=== PATIENT | male | born 1980 | race Caucasian/White ===

== ENCOUNTER 2017-06-27 12:34 | Emergency (ER) | payer OTHER ==
[~2017-06-27] VITALS: Ht 193 cm; Wt 70.0 kg
[2017-06-27 13:21] LABS: BASO # 0.1 10^3/uL (0.0-0.2); BASO % 0.5 % (0.0-1.0); EOS # 0.4 10^3/uL (0.0-0.50); EOS % 4.5 % (0.0-3.0); IMMATURE GRANULOCYTE % 0.6 % (0-0); LYMPH # 2.9 10^3/uL (1.5-4.5); LYMPH % 29.6 % (24.0-44.0); MEAN CORPUSCULAR HEMOGLOBIN 30.2 pg (27.0-33.0); MEAN CORPUSCULAR HGB CONC 35.2 g/dl (32.0-36.5); MEAN CORPUSCULAR VOLUME 85.8 fl (80.0-96.0); MONO # 0.7 10^3/uL (0.0-0.8); MONO % 7.2 % (0.0-5.0); NEUTROPHILS # 5.5 10^3/uL (1.8-7.7); NEUTROPHILS % 57.6 % (36.0-66.0); PLATELET COUNT, AUTOMATED 344 10^3/uL (150-450); RED CELL DISTRIBUTION WIDTH 12.2 % (11.5-14.5); WHITE BLOOD COUNT 9.6 10^3/uL (4.0-10.0)
[2017-06-27 13:26] LABS: ADD MANUAL DIFFER NO; DIFF SLIDE NUMBER 243
--- NOTE | 2017-06-27 13:43 | REP ---
Portable chest, 01:23 p.m., single AP view, patient sitting: The lung menjivar are clear. Cardiac size is upper normal for portable positioning. The lauren, mediastinum, and bony thorax unremarkable. Impression: Essentially negative portable chest. Signed by Jeanmarie Macdonald MD 06/27/2017 01:34 P
[2017-06-27 13:49] LABS: ALBUMIN 4.2 GM/DL (3.2-5.2); ALKALINE PHOSPHATASE 73 U/L (45-117); ALT/SGPT 44 U/L (12-78); ANION GAP 6 MEQ/L (8-16); AST/SGOT 15 U/L (15-37); BILIRUBIN,DIRECT < 0.1 MG/DL (0.0-0.2); BILIRUBIN,TOTAL 0.3 MG/DL (0.2-1.0); BLOOD UREA NITROGEN 13 MG/DL (7-18); CALCIUM LEVEL 9.3 MG/DL (8.5-10.1); CARBON DIOXIDE LEVEL 29 MEQ/L (21-32); CHLORIDE LEVEL 103 MEQ/L (98-107); CREATININE FOR GFR 1.09 MG/DL (0.70-1.30); GLOMERULAR FILTRATION RATE > 60.0 (>60); GLUCOSE, FASTING 101 MG/DL (70-105); POTASSIUM SERUM 4.3 MEQ/L (3.5-5.1); SODIUM LEVEL 138 MEQ/L (136-145); TOTAL PROTEIN 7.7 GM/DL (6.4-8.2)
[2017-06-27] MEDS ORDERED: ASPIRIN 81 MG CHEW TABLET PO ONE (14:00)
[2017-06-27] MEDS ORDERED: NITROGLYCERIN 0.4 MG SUBL TABLET SL PRN (14:00)
[2017-06-27] MEDS ORDERED: ISOVUE-370 76% 100ML VIAL (Q9967) As Ordered ONE (14:45)
--- NOTE | 2017-06-27 14:53 | REP ---
Bilateral lower extremity Duplex Doppler venous ultrasound: Real time compression and duplex Doppler interrogation of the bilateral lower extremity deep venous system is performed. Bilaterally, the common femoral, superficial femoral and popliteal veins are fully compressible with transducer pressure and demonstrate normal spontaneous and phasic flow, without evidence of deep venous thrombosis. Impression: No evidence of deep venous thrombosis of the bilateral lower extremity femoral popliteal venous system. Signed by Jeanmarie Leon MD 06/27/2017 02:44 P
--- NOTE | 2017-06-27 15:32 | REP ---
CT of the chest with IV contrast, CT pulmonary angiography: There are no emboli in the pulmonary trunk or central pulmonary arteries. There are no emboli in the lobe or segment branches. The thoracic aorta is unremarkable. There are no infiltrates, masses, nodules or effusions. There is no mediastinal or hilar adenopathy or mass. No axillary adenopathy. Cardiac size is upper normal. There is no pericardial effusion. The visualized upper abdominal contents are unremarkable. Impression: Negative CT study of the chest. Signed by Jeanmarie Macdonald MD 06/27/2017 03:23 P
[2017-06-27 20:30] VITALS: BP 134/70
--- NOTE | 2017-06-28 07:52 | ECGEPIP ---
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
--- NOTE | 2017-06-29 05:57 | ECGEPIP ---
Stationary ECG Study [facility] - ED Test Date: 2017-06-27 Pat Name: MARIUM CHE Department: Room: - Gender: M Fisher Eel Spear: oswaldo : 1980 Requested By: ORLANDO Mascorro Order Number: [id number] Reading MD: Khari Alas Measurements Intervals [place] Rate: 65 P: 48 MO: 176 QRS: -10 QRSD: 101 T: 9 QT: 380 QTc: 397 Interpretive Statements SINUS RHYTHM INC. RBBB MODERATE VOLTAGE CRITERIA FOR LVH, CONSIDER NORMAL VARIANT SIMILAR TO PRIOR ON SAME DATE Electronically Signed On 06-29-2017 5:57:27 EDT by Khari Alas
== END 2017-06-27 20:32 | disposition home or self-care (01) ==
LOC: M ED 12:34
DX: R07.9 Chest pain, unspecified (principal); Z87.891 Personal history of nicotine dependence; Z88.5 Allergy status to narcotic agent; Z88.8 Allergy status to other drugs, medicaments and biological substances
CPT/HCPCS: 71010; 71275; 80048; 80076; 82550; 82553; 83690; 84443; 85025; 93005; 93041; 93970; 94760; 99285; Q9967

== ENCOUNTER → 2017-08-11 | Outpatient (REF) | payer OTHER | LOC: M LAB REF 22:15 | PROVIDERS: ATTEND Physician Assistant | DX: J02.9 Acute pharyngitis, unspecified (principal) ==

== ENCOUNTER → 2017-09-25 | Outpatient (CLI) | payer OTHER ==
[2017-09-29 00:06] LABS: METANEPHRINE PLASMA 45 pg/mL (0-62); NORMETANEPHRINE PLASMA 54 pg/mL (0-145)
[2017-10-03 10:11] LABS: DOPAMINE 203 ug/24 hr (0-510); DOPAMINE TOTAL URINE 140 ug/L (Undefined); EPINEPHRINE 9 ug/24 hr (0-20); EPINEPHRINE TOTAL URINE 6 ug/L (Undefined); METANEPHRINE TOTAL URINE 111 ug/L (Undefined); METANEPHRINE URINE 161 ug/24 hr (45-290); NOREPINEPHRINE 20 ug/24 hr (0-135); NOREPINEPHRINE TOTAL URINE 14 ug/L (Undefined); NORMETANEPHRINE TOTAL URINE 141 ug/L (Undefined); NORMETANEPHRINE URINE 204 ug/24 hr (82-500)
== END ==
LOC: M LAB 11:24
DX: R23.2 Flushing (principal)
CPT/HCPCS: 82384

== ENCOUNTER → 2018-10-08 | Outpatient (CLI) | payer OTHER ==
--- NOTE | 2018-10-08 17:53 | REP ---
LEFT KNEE, FIVE VIEWS: HISTORY: Pain. There is no acute fracture or dislocation. The joint spaces are normal in appearance. IMPRESSION:There is no acute fracture or dislocation. Electronically Signed by Fransisco Sutherland MD 10/09/2018 08:14 A
== END ==
LOC: M WUC 15:40
PROVIDERS: ATTEND Physician Assistant
DX: M25.562 Pain in left knee (principal)

== ENCOUNTER 2019-01-08 09:27 | Emergency (ER) | payer OTHER ==
[~2019-01-08] VITALS: Ht 190.5 cm; Wt 113.6 kg
[2019-01-08] MEDS ORDERED: GNP250TA9 PO (09:55)
[2019-01-08] MEDS ORDERED: ZINC1TAB2 PO (09:55)
[2019-01-08] MEDS ORDERED: FISH306C PO (09:55)
--- NOTE | 2019-01-08 10:25 | REP ---
Chest two views HISTORY: Chest pain Comparison: None The lungs are clear. The heart is normal in size. The pulmonary vasculature is normal in appearance. The bony structure is intact. IMPRESSION: No acute disease. Electronically Signed by Fransisco Sutherland MD 01/08/2019 10:16 A
[2019-01-08 10:27] LABS: BASO # 0.1 10^3/uL (0.0-0.2); BASO % 0.6 % (0.0-1.0); EOS # 0.3 10^3/uL (0.0-0.50); HEMATOCRIT 44.2 % (42.0-52.0); HEMOGLOBIN 15.4 g/dl (13.5-17.5); LYMPH # 2.1 10^3/uL (1.5-4.5); LYMPH % 27.1 % (24.0-44.0); MEAN CORPUSCULAR HEMOGLOBIN 30.2 pg (27.0-33.0); MEAN CORPUSCULAR HGB CONC 34.8 g/dl (32.0-36.5); MEAN CORPUSCULAR VOLUME 86.7 fl (80.0-96.0); MONO # 0.5 10^3/uL (0.0-0.8); MONO % 6.9 % (0.0-5.0); NEUTROPHILS # 4.8 10^3/uL (1.8-7.7); NEUTROPHILS % 60.9 % (36.0-66.0); PLATELET COUNT, AUTOMATED 315 10^3/uL (150-450); WHITE BLOOD COUNT 7.8 10^3/uL (4.0-10.0)
[2019-01-08 10:37] LABS: INR 0.95; PROTHROMBIN TIME 12.8 SECONDS (12.1-14.4)
[2019-01-08 10:38] LABS: PARTIAL THROMBOPLASTIN TIME 30.5 SECONDS (25.4-37.6)
[2019-01-08 10:55] LABS: ALBUMIN 4.1 GM/DL (3.2-5.2); ALT/SGPT 35 U/L (12-78); BILIRUBIN,DIRECT 0.1 MG/DL (0.0-0.2); BILIRUBIN,TOTAL 0.5 MG/DL (0.2-1.0); BLOOD UREA NITROGEN 13 MG/DL (7-18); CARBON DIOXIDE LEVEL 26 MEQ/L (21-32); CHLORIDE LEVEL 108 MEQ/L (98-107); CPK CREATINE PHOSPHOKINASE 210 U/L (39-308); CREATININE FOR GFR 1.13 MG/DL (0.70-1.30); GLOMERULAR FILTRATION RATE > 60.0 (>60); GLUCOSE, FASTING 100 MG/DL (70-100); LIPASE 117 U/L (73-393); MB/CK RELATIVE INDEX 1.14 (< OR =4); POTASSIUM SERUM 4.3 MEQ/L (3.5-5.1); SODIUM LEVEL 139 MEQ/L (136-145); TOTAL PROTEIN 7.3 GM/DL (6.4-8.2); TROPONIN I 0.04 NG/ML (< 0.10)
[2019-01-08 13:00] VITALS: BP 182/85
[2019-01-08] MEDS ORDERED: ISOVUE-370 76% 100ML VIAL (Q9967) As Ordered ONE (13:06)
--- NOTE | 2019-01-08 13:36 | REP ---
CT study of the chest with IV contrast, CT pulmonary angiography: Comparison is 06/27/2017. There are no emboli in the pulmonary trunk or central pulmonary arteries. There are no emboli in the pulmonary lobe or segment branches. There are no infiltrates, effusions. There is a 9 mm lung nodule in the left lower lobe on image 144, not present previously. There is a 18 mm ground-glass density posteriorly in the right upper lobe on image 47, near the major fissure, not present previously. There is no hilar, mediastinal or axillary lymph node enlargement. The thoracic aorta is unremarkable. Cardiac size is normal. There is no pericardial effusion. The visualized upper abdominal contents are unremarkable. There is no adrenal mass. Impression: There are no pulmonary emboli. There are no acute infiltrates or effusions. There is a new 9 mm lung nodule in the left lower lobe. This is a category 4A the lung lesion with the probability malignancy five - 15%. 3-month follow-up chest CT is recommended. A PET scan might also be considered. There is a new 18 mm ground-glass density posteriorly in the right upper lobe. This is a category II lung lesion can be followed up during the follow-up of the 9 mm left lung nodule. Electronically Signed by Jeanmarie Macdonald MD 01/08/2019 01:28 P
--- NOTE | 2019-01-08 14:20 | ED PDOC ---
Post-Departure Follow-Up dr hutton faxed formal report of cta chest for fu Yuniel Mendez MD Jan 08, 2019 14:20
--- NOTE | 2019-01-09 21:28 | ECGEPIP ---
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
== END 2019-01-08 13:57 | disposition home or self-care (01) ==
LOC: M ED 09:27
DX: R07.89 Other chest pain (principal); R91.8 Other nonspecific abnormal finding of lung field; Z87.891 Personal history of nicotine dependence; Z79.899 Other long term (current) drug therapy; Z88.6 Allergy status to analgesic agent; Z88.5 Allergy status to narcotic agent
CPT/HCPCS: 71046; 71275; 80048; 80076; 82550; 82553; 83690; 84439; 84443; 84484; 85025; 85610; 85730; 93005; 93041; 94760; 99285; Q9967

== ENCOUNTER → 2019-09-30 | Outpatient (CLI) | payer OTHER ==
[~2019-09-30] MED LIST: FISH306C PO; GNP250TA9 PO; ISOVUE-370 76% 100ML VIAL (Q9967) As Ordered ONE; ZINC1TAB2 PO
--- NOTE | 2019-09-30 20:44 | REP ---
Clinical: Follow up abnormal lung findings. Comparison: 01/08/2019. Technique: Axial contrast enhanced images from the thoracic inlet to the upper abdomen with coronal and sagittal re-formations using 100 ml Isovue 370 intravenous contrast material. Comparison: 01/08/2019, 06/27/2017. Findings: 9 mm noncalcified nodule in the periphery of the left lower lobe (image 78) remains stable, but small 2 mm adjacent satellite nodules cannot be excluded which represent a change from prior examination. Remainder of lung menjivar are relatively clear/stable. Small amount of chronic change along the medial right middle lobe again noted. No further consolidation, nodule or mass lesion. No pleural effusion. No pneumothorax. No significant adenopathy is appreciated. Mediastinum demonstrates normal thoracic aorta, pulmonary vasculature and heart/pericardium. Surrounding musculoskeletal structures are intact. Limited upper abdomen demonstrates normal bilateral adrenal glands. Impression: 9 mm nodule in the left lower lobe remains stable, but current examination demonstrates few small 2 mm adjacent satellite nodules which were not identified on prior examination. Correlation and follow up is recommended. If necessary consider PET-CT for further investigation. Electronically Signed by Robles Schneider MD 09/30/2019 08:35 P
== END ==
LOC: M RAD 17:56
PROVIDERS: ATTEND Internal Medicine Pulmonary Disease
DX: R91.8 Other nonspecific abnormal finding of lung field (principal)
CPT/HCPCS: 71260; Q9967

== ENCOUNTER → 2020-03-30 | Outpatient (CLI) | payer OTHER ==
[~2020-03-30] MED LIST changes: -ISOVUE-370 76% 100ML VIAL (Q9967) As Ordered ONE; +ISOVUE-370 76% 100ML VIAL As Ordered ONE
--- NOTE | 2020-03-31 07:28 | REP ---
REASON FOR EXAM: Followup. All priors were reviewed, the latest 09/30/2019. CONTRAST: 100 mL Isovue-370. The mediastinum and pulmonary lauren are stable. Once again, there is a small amount of residual thymic tissue in the anterior mediastinum, status quo. No mass or adenopathy has developed. There are no pleural or pericardial effusions. There is no change in the imaged upper abdomen or imaged osseous structures. Evaluation of the lung menjivar shows no change in the 9 mm sized left lower lobe nodule. It has been stable since 01/08/2019. There are other stable 2 and 3 mm sized nodules. No new abnormal nodules, masses, or opacities have developed. IMPRESSION: Stable CT examination of the chest with findings as described above. Although the 9 mm sized nodule in the left lower lobe has remained stable since 01/08/2019. The smaller 2 and 3 mm sized left lower lobe nodules have only remained stable since the latest prior of 09/30/2019. Those small nodules can now be categorized as Lung-RADS category [address] screening is recommended. Electronically Signed by Kashmir Barrow DO 03/31/2020 09:32 A
== END ==
LOC: M RAD 13:36
PROVIDERS: ATTEND Internal Medicine Pulmonary Disease
DX: R91.8 Other nonspecific abnormal finding of lung field (principal)
CPT/HCPCS: 71260; Q9967

== ENCOUNTER → 2021-06-22 | Outpatient (CLI) | payer BC ==
[~2021-06-22] MED LIST changes: -ISOVUE-370 76% 100ML VIAL As Ordered ONE
--- NOTE | 2021-06-22 09:12 | REP ---
INDICATION: ABNORMAL FINDING OF LUNG FIELD COMPARISON: 03/30/2020, 09/30/2019, 01/08/2019 TECHNIQUE: Axial noncontrast images from the thoracic inlet to the upper abdomen with coronal and sagittal reformations. This CT examination was performed using the following dose reduction techniques: Automated exposure control, adjustment of mA and/or kv according to the patient's size, and use of iterative reconstruction technique. FINDINGS: A small cluster of noncalcified nodules in the periphery of the left lower lobe are again identified and essentially unchanged as compared with 09/30/2019. However, while the 9 mm nodule remains stable through 2019, the smaller adjacent satellite nodules measuring up to approximately 4 mm are new as compared to 12/29/2018 and essentially similar to 09/30/2019. remainder of the bilateral lung menjivar are relatively well aerated and clear/symmetric. No further acute nodule or mass. No consolidation, effusion, or pneumothorax. No significant adenopathy noted. Further evaluation of the mediastinum demonstrates normal thoracic aorta, pulmonary vasculature, and heart/pericardium by noncontrast evaluation. Surrounding musculoskeletal structures are intact. IMPRESSION: 1. Cluster of nodules in the periphery of the left lower lobe as described above likely reflect a mild chronic inflammatory process. Findings are essentially unchanged when compared with 09/30/2019. Consider follow-up examination at 6-12 months to confirm stability over greater than 24 month period. <Electronically signed by Robles Schneider > 06/22/21 [id number]
== END ==
LOC: M PLAIMG 08:17
PROVIDERS: ATTEND Internal Medicine Pulmonary Disease
DX: R91.8 Other nonspecific abnormal finding of lung field (principal)

== ENCOUNTER 2021-08-11 08:52 | Emergency (ER) | payer BC ==
[~2021-08-11] VITALS: Ht 193 cm; Wt 115.9 kg
--- NOTE | 2021-08-11 09:27 | REP ---
INDICATION: CHEST PAIN COMPARISON: 01/08/2019 TECHNIQUE: Portable AP view of the chest FINDINGS: The mediastinum and cardiac silhouette are stable and within normal limits for portable technique. The lung menjivar are clear without acute consolidation, effusion, or pneumothorax. Skeletal structures are intact. IMPRESSION: No acute cardiopulmonary process appreciated. <Electronically signed by Robles Schneider > 08/11/21 [id number]
[2021-08-11] MEDS ORDERED: ECOT81TA5 PO (09:30)
[2021-08-11 09:31] LABS: BASO # 0.1 10^3/uL (0.0-0.2); BASO % 0.5 % (0.0-1.0); EOS # 0.2 10^3/uL (0.0-0.5); EOS % 2.3 % (0.0-3.0); HEMATOCRIT 48.5 % (42.0-52.0); HEMOGLOBIN 16.4 g/dl (13.5-17.5); LYMPH % 19.8 % (24.0-44.0); MEAN CORPUSCULAR HEMOGLOBIN 30.5 pg (27.0-33.0); MEAN CORPUSCULAR HGB CONC 33.8 g/dl (32.0-36.5); MEAN CORPUSCULAR VOLUME 90.3 fl (80.0-96.0); MONO # 0.7 10^3/uL (0.0-0.8); MONO % 6.8 % (2.0-8.0); NEUTROPHILS % 70.2 % (36.0-66.0); PLATELET COUNT, AUTOMATED 337 10^3/uL (150-450); RED BLOOD COUNT 5.37 10^6/uL (4.30-6.10)
[2021-08-11] MEDS ORDERED: METOPROLOL TART 25 MG TABLET PO ONE (09:45)
--- OUTSIDE RECORDS SUMMARY | 2021-08-11 10:07 | CCD | Continuity of Care Document ---
Author Author Ashwin CURTIS.OElver Organization Unknown Address [address] [place] [address] Phone [phone] Care Team Providers Care Wiring Technician Name Role Phone No PCP AUTM Unavailable Problems Active Problems Provider Date Abnormal findings on diagnostic imaging of lung Vamsi porter D.O Onset: 07/07/2021 Social History Type Date Description Comments Sex Unknown Tobacco Use Reviewed: 04/01/20 Patient is a current smoker, smokes every day Occasionally Smoking Status Reviewed: 07/07/21 Patient is a current smoker, smokes every day Occasionally Allergies and adverse reactions Active Allergies Criticality Reaction | Severity Comments Date Caffeine Unable to assess criticality Palpitations 04/01/2020 Inactive Allergies NKDA Unable to assess criticality 03/24/2020 Medications Active Medications SIG Qnty Indications Ordering Provide r Date Acyclovir as needed Unknown Immunizations Description No Information Available Vital Signs Date Vital Result Comment 07/07/2021 10:11am BP Systolic 142 mmHg BP Diastolic 98 mmHg Heart Rate 83 /min O2 % BldC Oximetry 98 % Height 75.5 inches 6'3.50" Weight 263.00 lb BMI (Body Mass Index) 32.4 kg/m2 [place] Body Weight 196 lb Weight 119.297 kg BSA (Body Surface Area) 2.48 m2 04/01/2020 8:55am BP Systolic 122 mmHg BP Diastolic 82 mmHg Heart Rate 66 /min O2 % BldC Oximetry 98 % Body Temperature 98.8 F Height 75.5 inches 6'3.50" Weight 265.00 lb BMI (Body Mass Index) 32.7 kg/m2 [place] Body Weight 196 lb Weight 120.204 kg BSA (Body Surface Area) 2.49 m2 Results Description No Information Available Procedures Description No Information Available Medical Devices Description No Information Available Encounters Description No Information Available Assessments Date Code Description Provider 07/07/2021 R91.8 Other nonspecific abnormal findi ng of lung field Vamsi Curtis D.O Plan of Treatment 07/07/2021 - Vamsi Curtis D.O* R91.8 Other nonspecific abnormal finding of lung field * * Follow up:* no regular follow up needed, call if questions Functional Status Description No Information Available Mental Status Description No Information Available Referrals Description No Information Available
--- OUTSIDE RECORDS SUMMARY | 2021-08-11 10:07 | CCD | Continuity of Care Document ---
Author Author Ashwin CURTIS.OElver Organization Unknown Address [address] [place] [address] Phone [phone] Care Team Providers Care Glassware Engraver Name Role Phone No PCP AUTM Unavailable [...] lb BMI (Body Mass Index) 32.4 kg/m2 [place] Body Weight 196 lb Weight 119.297 kg BSA (Body Surface Area) 2.48 m2 04/01/2020 8:55am BP Systolic 122 mmHg BP Diastolic 82 mmHg Heart Rate 66 /min O2 % BldC Oximetry 98 % Body Temperature 98.8 F Height 75.5 inches 6'3.50" Weight 265.00 lb BMI (Body Mass Index) 32.7 kg/m2 [place] Body Weight 196 lb Weight 120.204 kg [...]
--- OUTSIDE RECORDS SUMMARY | 2021-08-11 10:07 | CCD | Continuity of Care Document ---
Author Author Ashwin CURTIS.O. Organization Unknown Address [address] [place] [address] Phone [phone] Care Team Providers Care Principal Network Architect Name Role Phone No PCP AUTM Unavailable [...] lb BMI (Body Mass Index) 32.4 kg/m2 [place] Body Weight 196 lb Weight 119.297 kg BSA (Body Surface Area) 2.48 m2 04/01/2020 8:55am BP Systolic 122 mmHg BP Diastolic 82 mmHg Heart Rate 66 /min O2 % BldC Oximetry 98 % Body Temperature 98.8 F Height 75.5 inches 6'3.50" Weight 265.00 lb BMI (Body Mass Index) 32.7 kg/m2 [place] Body Weight 196 lb Weight 120.204 kg BSA (Body Surface Area) 2.49 m2 Results Description No Information Available Procedures Date Code Description Status 07/07/2021 259[address] Office/Outpatient Established Lo w [facility] 20-29 Min Completed Medical Devices Description No Information Available Encounters Type Date Location Provider Dx Diagnosis Office Visit 07/07/2021 10:30a [facility] Davy Curtis D.O R91.8 Other nonspecific abnormal f inding of lung field Assessments Date Code Description Provider 07/07/2021 R91.8 Other nonspecific abnormal findi ng of lung field Vamsi Curtis D.O Plan of Treatment 07/07/2021 - Vamsi Curtis D.O* R91.8 Other nonspecific abnormal finding of lung field * * Comments:* ~ Having reviewed the history, physical, and diagnostic findings with the patient, I have encouraged his effort towards smoking cessation, and recommended that he try a topical nicotine patch. ~ Given the stability on imaging studies, I have recommended no further imaging in the absence of new symptoms at this point, and follow-up will be on an as needed basis. * Follow up:* No regular follow-up needed, call if questions. Functional Status Description No Information Available Mental Status Description No Information Available Referrals Description No Information Available
--- OUTSIDE RECORDS SUMMARY | 2021-08-11 10:07 | CCD ---
Continuity of Care Document (CCD) Created on: 07/07/2021 Ashwin Hooper External Reference #: [id number] : [id number] Sex: Male Author Author Ashwin CURTIS.OElver Organization Unknown Address [address] [place] [address] Phone [phone] Care Team Providers Care Loom Fixer Supervisor Name Role Phone No PCP AUTM Unavailable [...] lb BMI (Body Mass Index) 32.4 kg/m2 [place] Body Weight 196 lb Weight 119.297 kg BSA (Body Surface Area) 2.48 m2 04/01/2020 8:55am BP Systolic 122 mmHg BP Diastolic 82 mmHg Heart Rate 66 /min O2 % BldC Oximetry 98 % Body Temperature 98.8 F Height 75.5 inches 6'3.50" Weight 265.00 lb BMI (Body Mass Index) 32.7 kg/m2 [place] Body Weight 196 lb Weight 120.204 kg [...]
--- OUTSIDE RECORDS SUMMARY | 2021-08-11 10:07 | CCD ---
Continuity of Care Document (CCD) Created on: 07/07/2021 Ashwin Hooper External Reference #: [id number] : 1980 Sex: Male Author Author Ashwin CURTIS.OElver Organization Unknown Address [address] [place] [address] Phone [phone] Care Team Providers Care Crimping Press Operator Name Role Phone No PCP AUTM Unavailable [...] lb BMI (Body Mass Index) 32.4 kg/m2 [place] Body Weight 196 lb Weight 119.297 kg BSA (Body Surface Area) 2.48 m2 04/01/2020 8:55am BP Systolic 122 mmHg BP Diastolic 82 mmHg Heart Rate 66 /min O2 % BldC Oximetry 98 % Body Temperature 98.8 F Height 75.5 inches 6'3.50" Weight 265.00 lb BMI (Body Mass Index) 32.7 kg/m2 [place] Body Weight 196 lb Weight 120.204 kg [...]
--- OUTSIDE RECORDS SUMMARY | 2021-08-11 10:07 | CCD | Continuity of Care Document ---
Author Author Ashwin CURTIS.OElver Organization Unknown Address [address] [place] [address] Phone [phone] Care Team Providers Care Barrel Tester And Drainer Name Role Phone No PCP AUTM Unavailable [...] lb BMI (Body Mass Index) 32.4 kg/m2 [place] Body Weight 196 lb Weight 119.297 kg BSA (Body Surface Area) 2.48 m2 04/01/2020 8:55am BP Systolic 122 mmHg BP Diastolic 82 mmHg Heart Rate 66 /min O2 % BldC Oximetry 98 % Body Temperature 98.8 F Height 75.5 inches 6'3.50" Weight 265.00 lb BMI (Body Mass Index) 32.7 kg/m2 [place] Body Weight 196 lb Weight 120.204 kg [...]
[2021-08-11 10:16] LABS: ALT/SGPT 39 U/L (12-78); BILIRUBIN,DIRECT < 0.1 MG/DL (0.0-0.2); BILIRUBIN,TOTAL 0.3 MG/DL (0.2-1.0); BLOOD UREA NITROGEN 18 MG/DL (7-18); CALCIUM LEVEL 9.7 MG/DL (8.5-10.1); CARBON DIOXIDE LEVEL 24 MEQ/L (21-32); CHLORIDE LEVEL 109 MEQ/L (98-107); CREATININE FOR GFR 1.03 MG/DL (0.70-1.30); FREE T4 1.06 NG/DL (0.76-1.46); GLOMERULAR FILTRATION RATE > 60.0 (>60); GLUCOSE, FASTING 106 MG/DL (70-100); LIPASE 128 U/L (73-393); POTASSIUM SERUM 4.3 MEQ/L (3.5-5.1); SODIUM LEVEL 141 MEQ/L (136-145); TOTAL PROTEIN 7.4 GM/DL (6.4-8.2)
--- OUTSIDE RECORDS SUMMARY | 2021-08-11 10:19 | CCD ---
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 Name Role Phone Rechlin, Shashi Agustin DO Unavailable Unavailable Rechlin, Shashi Agustin DO Unavailable Unavailable Rechlin, Shashi Agustin DO Unavailable Unavailable Rechlin, Shahsi Agustin DO Unavailable Unavailable Rechlin, Shashi Agustin DO Unavailable Unavailable Rechlin, Shashi Agustin DO Unavailable Unavailable Rechlin, Shashi Agustin DO Unavailable Unavailable Rechlin, Shashi Agustin DO Unavailable Unavailable Rechlin, Shashi Agustin DO Unavailable Unavailable Rechlin, Shashi Agustin DO Unavailable Unavailable Rechlin, Sahshi Agustin DO Unavailable Unavailable Rechlin, Shashi Agustin DO Unavailable Unavailable Rechlin, Shashi Agustin DO Unavailable Unavailable Rechlin, Shashi Agustin DO Unavailable Unavailable Rechlin, Shashi Agustin DO Unavailable Unavailable Rechlin, Shashi Agustin DO Unavailable Unavailable Rechlin, Shashi Agustin DO Unavailable Unavailable Rechlin, Shashi Agustin DO Unavailable Unavailable Rechlin, Shashi Agustin DO Unavailable Unavailable Rechlin, Shashi Agustin DO Unavailable Unavailable Rechlin, Shashi Agustin DO Unavailable Unavailable Rechlin, Shashi Agustin DO Unavailable Unavailable Rechlin, Shashi Agustin DO Unavailable Unavailable Rechlin, Shashi Agustin DO Unavailable Unavailable Rechlin, Shashi Agustin DO Unavailable Unavailable Rechlin, Shashi Agustin DO Unavailable Unavailable Rechlin, Shashi Agustin DO Unavailable Unavailable Rechlin, Shashi Agustin DO Unavailable Unavailable Rechlin, Shashi Agustin DO Unavailable Unavailable Rechlin, Shashi Agustin DO Unavailable Unavailable Rechlin, Shashi Agustin DO Unavailable Unavailable Rechlin, Shashi Agustin DO Unavailable Unavailable Rechlin, P Vamsi DO Unavailable Unavailable Rechlin, P Vamsi DO Unavailable Unavailable Rechlin, P Vamsi DO Unavailable Unavailable Rechlin, P Vamsi DO Unavailable Unavailable Rechlin, P Vamsi DO Unavailable Unavailable Rechlin, P Vamsi DO Unavailable Unavailable Rechlin, P Vamsi DO Unavailable Unavailable Rechlin, P Vamsi DO Unavailable Unavailable Rechlin, P Vamsi DO Unavailable Unavailable Rechlin, P Vamsi DO Unavailable Unavailable Rechlin, P Vamsi DO Unavailable Unavailable Rechlin, P Vamsi DO Unavailable Unavailable Rechlin, P Vamsi DO Unavailable Unavailable Rechlin, P Vamsi DO Unavailable Unavailable Rechlin, P Vamsi DO Unavailable Unavailable Rechlin, P Vamsi DO Unavailable Unavailable Rechlin, P Vamsi DO Unavailable Unavailable Rechlin, P Vamsi DO Unavailable Unavailable Rechlin, P Vamsi DO Unavailable Unavailable Re-disclosure Warning The records that you are about to access may contain information from federally-assisted alcohol or drug abuse programs. If such information is present, then the following federally mandated warning applies: This information has been disclosed to you from records protected by federal confidentiality rules (42 CFR part 2). The federal rules prohibit you from making any further disclosure of this information unless further disclosure is expressly permitted by the written consent of the person to whom it pertains or as otherwise permitted by 42 CFR part 2. A general authorization for the release of medical or other information is NOT sufficient for this purpose. The Federal rules restrict any use of the information to criminally investigate or prosecute any alcohol or drug abuse patient.The records that you are about to access may contain highly sensitive health information, the redisclosure of which is protected by Article 27-F of the [facility] Public Health law. If you continue you may have access to information: Regarding HIV / AIDS; Provided by facilities licensed or operated by the [facility] Office of Mental Health; or Provided by the [facility] Office for People With Developmental Disabilities. If such information is present, then the following [facility] mandated warning applies: This information has been disclosed to you from confidential records which are protected by state law. State law prohibits you from making any further disclosure of this information without the specific written consent of the person to whom it pertains, or as otherwise permitted by law. Any unauthorized further disclosure in violation of state law may result in a fine or mcc sentence or both. A general authorization for the release of medical or other information is NOT sufficient authorization for further disc losure. Family History Family Member Name Family Member Gender Family Member Status Date o f Status Description Data Source(s) Unknown Male Problem [facility] ([facility]) Encounters Encounter Providers Location Date Indications Data Source(s ) Outpatient Attender: Vamsi Wheatley/Korey/John/Eliecer ballesteros 07/07/2021 10:30:00 AM EDT [facility] ([facility], ) Immunizations Vaccine Date Status Description Data Source(s) COVID-19 VACCINE Pfizer 05/29/2021 12:00:00 AM EDT completed [facility] Vaccine Series Complete: NOThis Data was Submitted to [facility] Via [employer]. Medications No Information Insurance Providers Payer name Policy type / Coverage type Policy ID Covered green party ID Covered green party's relationship to [place] Policy [place] Plan Information [employer] [place]/307 [id number] [employer] [place]/307 [id number] SP [id number] [facility] [id number] SP [id number] [facility] O [id number] S [id number] [facility] [id number] SP [id number] [facility] Commercial [id number] Family Dependent [id number] [facility] Commercial [id number] Self [id number] [facility] [id number] SP [id number] Problems, Conditions, and Diagnoses Code Display Name Description Problem Type Effective Dates Data Source(s) R91.8 Abnormal findings on diagnostic imaging of lung Abnormal findings on diagnostic imaging of lung Problem 07/07/2021 12:00:00 AM EDT [facility] ([facility] [place], ) Surgeries/Procedures Procedure Description Date Indications Data Source(s) OFFICE OUTPATIENT VISIT 15 MINUTES 07/07/2021 12:00:00 AM EDT [facility] ([facility] [place], ) Results No Information Social History No Information Vital Signs ID Date Data Source UNK Name Value Range Interpretation Code Description Data Source(s) Heart rate 83 /min 83 /min [facility] ([facility]) [place] body weight 196 [lb_av] 196 [lb_av] [facility] Body surface area Derived from formula 2.48 m2 2.[address] [facility] ([facility]) Body height 75.5 [in_i] 75.5 [in_i] [facility] ([facility]) 6'3.50" Body weight 263.00 [lb_av] 263.00 [lb_av] [facility] Body mass index (BMI) [Ratio] 32.4 kg/m2 32.4 k g/m2 [facility] ([facility]) Systolic blood pressure 142 mm[Hg] 142 mm[Hg] M [facility] ([facility]) Diastolic blood pressure 98 mm[Hg] 98 mm[Hg] [facility] ([facility]) Oxygen saturation in Arterial blood by Pulse oximetry 98 % 98 % [facility] ([facility]) Body weight 119.297 kg 119.297 kg [facility])
[2021-08-11] MEDS: METOPROLOL 5 MG/5 ML VIAL IV SCH ×3 (10:28→10:42)
[2021-08-11 10:42] VITALS: BP 167/96
[2021-08-11] MEDS ORDERED: ELIQ5TAB PO (12:47)
[2021-08-11] MEDS ORDERED: ATEN25TA PO (13:28)
[2021-08-11 13:34] VITALS: BP 140/85
--- NOTE | 2021-08-13 07:48 | ECGEPIP ---
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
== END 2021-08-11 13:42 | disposition home or self-care (01) ==
LOC: M ED 08:52
DX: I48.91 Unspecified atrial fibrillation (principal); K21.9 Gastro-esophageal reflux disease without esophagitis; F41.9 Anxiety disorder, unspecified; Z79.899 Other long term (current) drug therapy; Z88.6 Allergy status to analgesic agent; Z88.5 Allergy status to narcotic agent

== ENCOUNTER → 2022-02-23 | Outpatient (REF) | payer BC ==
[~2022-02-23] MED LIST changes: +ATEN25TA PO; +ECOT81TA5 PO; +ELIQ5TAB PO
== END ==
LOC: M LAB REF 11:59
PROVIDERS: ATTEND Physician Assistant
DX: R50.9 Fever, unspecified (principal); R05.9 Cough, unspecified; R07.0 Pain in throat

== ENCOUNTER 2024-04-22 14:54 | Emergency (ER) | payer BC ==
[~2024-04-22] VITALS: Ht 190.5 cm; Wt 118.2 kg
[2024-04-22] MEDS ORDERED: ATEN25TA PO (15:02)
[2024-04-22 15:38] LABS: BASO # 0.1 10^3/uL (0.0-0.2); BASO % 0.5 % (0.0-1.0); EOS # 0.4 10^3/uL (0.0-0.5); EOS % 3.4 % (0.0-3.0); HEMATOCRIT 46.1 % (42.0-52.0); LYMPH # 2.4 10^3/uL (1.5-5.0); LYMPH % 21.9 % (24.0-44.0); MEAN CORPUSCULAR HEMOGLOBIN 30.9 pg (27.0-33.0); MEAN CORPUSCULAR HGB CONC 34.7 g/dl (32.0-36.5); MONO # 0.5 10^3/uL (0.0-0.8); MONO % 4.6 % (2.0-8.0); NEUTROPHILS # 7.6 10^3/uL (1.5-8.5); PLATELET COUNT, AUTOMATED 294 10^3/uL (150-450); RED BLOOD COUNT 5.18 10^6/uL (4.30-6.10)
[2024-04-22 15:56] LABS: PROTHROMBIN TIME 12.9 SECONDS (12.5-14.5)
[2024-04-22 15:59] LABS: CK-MB VALUE MASS 1.9 NG/ML (<3.6); LIPASE 38 U/L (12-53)
[2024-04-22 16:01] LABS: ALBUMIN 3.9 G/DL (3.2-5.2); ALKALINE PHOSPHATASE 85 U/L (46-116); ALT/SGPT 46 U/L (7.0-40); AST/SGOT 22 U/L (<34); BILIRUBIN,DIRECT < 0.1 MG/DL (<0.4); BILIRUBIN,TOTAL 0.3 MG/DL (0.3-1.2); BLOOD UREA NITROGEN 16 MG/DL (9-23); CALCIUM LEVEL 9.4 MG/DL (8.5-10.1); CARBON DIOXIDE LEVEL 24 MMOL/L (20-31); CHLORIDE LEVEL 107 MMOL/L (98-107); CPK CREATINE PHOSPHOKINASE 273 U/L (46-171); CREATININE FOR GFR 0.87 MG/DL (0.70-1.30); GLOMERULAR FILTRATION RATE > 60.0 (>60); GLUCOSE, FASTING 187 MG/DL (60-100); MB/CK RELATIVE INDEX 0.69 (< OR =4); POTASSIUM SERUM 3.8 MMOL/L (3.5-5.1); SODIUM LEVEL 138 MMOL/L (136-145); TOTAL PROTEIN 6.8 G/DL (5.7-8.2)
[2024-04-22 16:34] VITALS: TEMP 97.6
[2024-04-22] MEDS ORDERED: ISOVUE-370 76% 100ML VIAL As Ordered ONE (17:20)
[2024-04-22 17:54] VITALS: O2SAT 96
[2024-04-22 18:09] VITALS: BP 113/68
[2024-04-22 18:46] LABS: MAGNESIUM LEVEL 2.3 MG/DL (1.8-2.4)
[2024-04-22 18:49] LABS: FREE T4 1.01 NG/DL (0.89-1.76); THYROID STIMULATING HORMONE 1.37 uIU/ML (0.55-4.78)
== END 2024-04-22 19:32 | disposition home or self-care (01) ==
LOC: M ED 14:54
DX: R55 Syncope and collapse (principal); F12.10 Cannabis abuse, uncomplicated; F10.10 Alcohol abuse, uncomplicated; Z88.5 Allergy status to narcotic agent; Z88.6 Allergy status to analgesic agent; Z79.82 Long term (current) use of aspirin; Z79.899 Other long term (current) drug therapy
CPT/HCPCS: 36415; 71045; 71275; 80048; 80076; 82550; 82553; 83690; 83735; 84439; 84443; 84484; 85025; 85610; 93005; 93041; 94760; 99285; Q9967

== ENCOUNTER → 2024-06-18 | Outpatient (CLI) | payer BC ==
[2024-06-18 16:25] LABS: BASO # 0.1 10^3/uL (0.0-0.2); BASO % 0.6 % (0.0-1.0); EOS # 0.3 10^3/uL (0.0-0.5); EOS % 2.5 % (0.0-3.0); HEMATOCRIT 44.9 % (42.0-52.0); HEMOGLOBIN 15.7 g/dl (13.5-17.5); LYMPH # 2.5 10^3/uL (1.5-5.0); LYMPH % 21.7 % (24.0-44.0); MEAN CORPUSCULAR HEMOGLOBIN 30.9 pg (27.0-33.0); MEAN CORPUSCULAR VOLUME 88.4 fl (80.0-96.0); MONO # 0.9 10^3/uL (0.0-0.8); MONO % 8.1 % (2.0-8.0); NEUTROPHILS # 7.6 10^3/uL (1.5-8.5); NEUTROPHILS % 66.2 % (36.0-66.0); PLATELET COUNT, AUTOMATED 351 10^3/uL (150-450); RED BLOOD COUNT 5.08 10^6/uL (4.30-6.10); WHITE BLOOD COUNT 11.4 10^3/uL (4.0-10.0)
[2024-06-18 16:49] LABS: ALBUMIN 4.3 G/DL (3.2-5.2); ALKALINE PHOSPHATASE 88 U/L (46-116); ALT/SGPT 60 U/L (7.0-40); AST/SGOT 41 U/L (<34); BILIRUBIN,TOTAL 0.8 MG/DL (0.3-1.2); BLOOD UREA NITROGEN 16 MG/DL (9-23); CALCIUM LEVEL 10.1 MG/DL (8.5-10.1); CARBON DIOXIDE LEVEL 28 MMOL/L (20-31); CHLORIDE LEVEL 106 MMOL/L (98-107); CHOLESTEROL LEVEL 208 MG/DL (<200); CHOLESTEROL RISK RATIO 5.26 (<5); CREATININE FOR GFR 1.19 MG/DL (0.70-1.30); GLOMERULAR FILTRATION RATE > 60.0 (>60); GLUCOSE, FASTING 83 MG/DL (60-100); HDL CHOLESTEROL 39.5 MG/DL (>40); LDL CHOLESTEROL 123.7 MG/DL (<100); NON-HDL-C 168.5 MG/DL; POTASSIUM SERUM 4.4 MMOL/L (3.5-5.1); SODIUM LEVEL 136 MMOL/L (136-145); TOTAL PROTEIN 7.6 G/DL (5.7-8.2); TRIGLYCERIDES LEVEL 224 MG/DL (<150)
[2024-06-18 16:52] LABS: FREE T4 1.18 NG/DL (0.89-1.76)
== END ==
LOC: M LAB 15:53
PROVIDERS: ATTEND Registered Nurse
DX: I10 Essential (primary) hypertension (principal); Z13.220 Encounter for screening for lipoid disorders

== ENCOUNTER → 2024-06-25 | Outpatient (CLI) | payer BC | LOC: M LAB 10:39 → M EKG 10:39 | PROVIDERS: ATTEND Registered Nurse | DX: I48.0 Paroxysmal atrial fibrillation (principal) ==

== ENCOUNTER → 2024-09-03 | Outpatient (REF) | payer BC ==
[2024-09-03 18:34] LABS: HEMATOCRIT 46.6 % (42.0-52.0); HEMOGLOBIN 15.7 g/dl (13.5-17.5); MEAN CORPUSCULAR HEMOGLOBIN 30.7 pg (27.0-33.0); MEAN CORPUSCULAR HGB CONC 33.7 g/dl (32.0-36.5); PLATELET COUNT, AUTOMATED 338 10^3/uL (150-450); RED BLOOD COUNT 5.12 10^6/uL (4.30-6.10); WHITE BLOOD COUNT 10.2 10^3/uL (4.0-10.0)
[2024-09-03 18:38] LABS: HEMOGLOBIN A1c 4.9 % (4.0-6.0)
[2024-09-03 18:39] LABS: PSA SCREENING 0.61 NG/ML (< 4.00)
[2024-09-03 18:42] LABS: ALBUMIN 4.3 G/DL (3.2-5.2); ALKALINE PHOSPHATASE 85 U/L (40-129); ALT/SGPT 41 U/L (7.0-40); AST/SGOT 27 U/L (<34); BILIRUBIN,TOTAL 0.6 MG/DL (0.3-1.2); BLOOD UREA NITROGEN 15 MG/DL (9-23); CALCIUM LEVEL 10.4 MG/DL (8.5-10.1); CARBON DIOXIDE LEVEL 25 MMOL/L (20-31); CHLORIDE LEVEL 108 MMOL/L (98-107); CHOLESTEROL LEVEL 137 MG/DL (<200); CHOLESTEROL RISK RATIO 3.58 (<5); CREATININE FOR GFR 0.94 MG/DL (0.70-1.30); GLOMERULAR FILTRATION RATE > 60.0 (>60); GLUCOSE, FASTING 90 MG/DL (60-100); HDL CHOLESTEROL 38.2 MG/DL (>40); LDL CHOLESTEROL 71.8 MG/DL (<100); NON-HDL-C 98.8 MG/DL; POTASSIUM SERUM 4.7 MMOL/L (3.5-5.1); SODIUM LEVEL 141 MMOL/L (136-145); TOTAL PROTEIN 7.6 G/DL (5.7-8.2); TRIGLYCERIDES LEVEL 135 MG/DL (<150)
[2024-09-03 18:43] LABS: FREE T4 1.07 NG/DL (0.89-1.76); THYROID STIMULATING HORMONE 2.224 uIU/ML (0.55-4.78)
== END ==
LOC: M SFHCADAM 12:05
PROVIDERS: ATTEND Family Medicine
DX: R13.19 Other dysphagia (principal); R29.818 Other symptoms and signs involving the nervous system; I11.9 Hypertensive heart disease without heart failure; E78.5 Hyperlipidemia, unspecified; I48.0 Paroxysmal atrial fibrillation; Z13.1 Encounter for screening for diabetes mellitus; Z12.5 Encounter for screening for malignant neoplasm of prostate
CPT/HCPCS: 80053; 80061; 83036; 84439; 84443; 85027; G0103

== ENCOUNTER 2024-11-26 06:53 | Day surgery (SDC) | payer BC ==
[~2024-11-26] VITALS: Ht 193 cm; Wt 113.5 kg
[~2024-11-26 06:53] MED LIST changes: +ASPI81TA26 PO; +LOSA50TA28 PO; +RA N1TAB PO; +ROSU10TA61 PO
[2024-11-26] MEDS ORDERED: LIDOCAINE 2% 100MG/5ML SDV (FOR ANES.) As Ordered ONE (07:22)
[2024-11-26] MEDS ORDERED: propofoL 200 MG/20 ML VIAL As Ordered ONE (07:22)
[2024-11-26 07:46] VITALS: TEMP 97.8
[2024-11-26 08:10] VITALS: BP 117/56; O2SAT 97
== END 2024-11-26 08:21 | disposition home or self-care (01) ==
LOC: M OPP 06:53
PROVIDERS: ATTEND Internal Medicine Gastroenterology
DX: K22.89 Other specified disease of esophagus (principal); I48.91 Unspecified atrial fibrillation; I10 Essential (primary) hypertension; E78.00 Pure hypercholesterolemia, unspecified; K21.9 Gastro-esophageal reflux disease without esophagitis; F17.210 Nicotine dependence, cigarettes, uncomplicated; Z88.5 Allergy status to narcotic agent; Z88.6 Allergy status to analgesic agent; Z79.82 Long term (current) use of aspirin; Z79.899 Other long term (current) drug therapy

== ENCOUNTER → 2025-07-29 | Outpatient (REF) | payer BC ==
[~2025-07-29] MED LIST changes: -ROSU10TA61 PO; +ROSU10TA90 PO
== END ==
LOC: M LAB REF 15:21
PROVIDERS: ATTEND Physician Assistant
DX: B34.9 Viral infection, unspecified (principal)